=== PATIENT | male | born 1975 | race Two or more races ===

== ENCOUNTER 2024-05-09 10:43 | Outpatient (AMB) | payer OTHER, MEDICAID, SELFPAY ==
[2024-05-09 10:59] VITALS: BP 126/78; PULSE 80; TEMP 36.7; O2SAT 97; BMI 26.1
--- NOTE | 2024-05-09 10:59 | MHC.OFFWIV ---
Intake Vital Signs 05/09/24 10:59 Height 5 ft 6 in Weight 161 lb 8 oz BMI 26.1 BP 126/78 Blood Pressure Location Rt brachial Position Sitting Pulse 80 Pulse Source Pulse Oximeter Temp 98.0 F Temp Source Oral Pulse Oximetry (%) 97 Intake Visit Reasons: tightness chest fire extinguisher used Intake Note: pt is here for chest tightness due to fire extinguisher being used to at job. 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 He states he was at work this morning and accidentally triggered a fire extinguisher. He states the fire extinguisher sprayed into the air which irritated his throat and made his chest feels tight. He does have a history of asthma but he did not use his inhaler or feel like he needed to use his inhaler at the time of the incident. He states he feels like most of his symptoms have resolved but his employer asked him to come in and be evaluated. He denies any shortness of breath, trouble breathing or feeling like his throat is closing up PFSH Social History Patient Tobacco Use Status: Never used Tobacco Review of Systems Const All systems reviewed & are unremarkable except as noted in HPI and below Physical Exam Vital Signs: Last Vital Signs Temp 98.0 F 05/09/24 10:59 Pulse 80 05/09/24 10:59 BP 126/78 05/09/24 10:59 Pulse Ox 97 05/09/24 10:59 BMI result Body Mass Index 26.1 Const General: cooperative, healthy appearing, comfortable, no acute distress and well developed Orientation/consciousness: patient oriented x3 Limitations: no limitations HEENT Head: Yes normal to inspection Eyes General: appearance normal, both eyes and all related structures Neck Neck: Yes normal visual inspection and Yes full ROM Resp Effort & Inspection: normal respiratory effort and able to speak in complete sentences Auscultation: clear to auscultation bilaterally Cardio Rate: regular rate Rhythm: regular rhythm Heart sounds: normal S1 and S2 GI Inspection: Yes normal to inspection Palpation (GI): Soft to palpation and nontender Skin General skin exam: no rashes or lesions noted Neuro General: patient oriented x3 Extrem General: Yes normal to inspection Psych Appearance: grossly normal and well kempt Assessment & Plan Assessment & Plan (1) Chest tightness: Code(s): R07.89 - Other chest pain Plan: As symptoms have completely resolved, vital signs are stable and physical exam was unremarkable. Wrote note that patient is free to return to work. No indication for a chest x-ray Plan See above Coding Level of Care Code New Pt Level 4 (76461) Diagnoses Chest tightness R07.89
== END 2024-05-09 11:32 | disposition home or self-care (01) ==
PROVIDERS: Visit Provider Physician Assistant
DX: R07.89 Other chest pain (principal); Z04.2 Encounter for examination and observation following work accident
CPT/HCPCS: 99204

== ENCOUNTER 2025-05-18 08:45 | Emergency (ER) | payer MEDICAID, SELFPAY ==
--- OUTSIDE RECORDS SUMMARY | 2025-03-10 17:30 | XMS_ITS ---
Author Organization [facility] Address [address] [place] [id number] Care Team Providers Care Merchandising Director Name Role Phone WALTER ROSALES, KAUSHIK Primary Care Provider Unavail able Carole Arreola Unavailable [phone] Migration, Provider Unavailable Unavailable REASON FOR VISIT Multum To Medispan Conversion Encounter Medications Medication SIG (Take, Route, Frequency, Duration) Notes Start Date End Date Status Atorvastatin Calcium 80 MG 1 tab(s) orally once a day for 30 day(s) 09/07/2023 Active Sutab 0.225 G-0.188 G-1.479 G DIRECTED COUPON INFORMATION: BIN: [id number] PCN: CN GRP: [id number] ID: [id number] *Please review and pick correct strength-formulatio n from Medispan options. If intended option is not shown, discontinue and re-order from Quick Search* 10/04/2023 Active Famciclovir 500 MG TAKE 3 TABLETS BY MOUTH ONCE AT THE FIRST SIGN OF A HERPES OUTBREAK for 5 Days Active Encounters Encounter Location Date Provider Diagnosis [facility] [address] [place] [phone] 03/10/2025 Provider Migration Plan Of Treatment Next Appt Details Provider Name:Carole barrios, 11/06/2025 02:45:00 PM, [address] [place] [address], [place], [phone], Progress Notes * BRIANDA SHELTONDOB:0 1975 (50 yo M)Acc No.[id number]:03/10/2025 Patient: BRIANDA HUDSON Provider: :1975 A ge:49 Y S ex:Male Date:03/10/2025 Address:[address] [place], [place] [id number] Pcp:KAUSHIK WATSON MD Subjective: * Chief Complaints: * 1 . Multum To Medispan Conversion Encounter. * Medical History: * Medications: T aking Famciclovir 500 MG Tablet TAKE 3 TABLETS BY MOUTH ONCE AT THE FIRST SIGN OF A HERPES OUTBREAK , Taking Atorvastatin Calcium 80 MG Tablet 1 tab(s) orally once a day , Taking Sutab 0.225 G-0.188 G-1.479 G TABLET DIRECTED COUPON INFORMATION: BIN: [id number] PCN: NIYAH GRP: [id number] ID: [id number] , Notes to Pharmacist: *Please review and pick correct strength-formulation from Medispan options. If intended option is not shown, discontinue and re-order from Quick Search* Objective: * Vitals: Assessment: Plan: * Treatment: * * Electronic signature of Prov ider Migration on 05/18/2025 at 09:40 AM EDT Sign off status: Pending * Provider: Date: 03/10/2025 Generated for Perico orlando/Adina/Joseitting on: 05/18/2025 09:40 AM EDT
--- NOTE | 2025-05-18 | ECG_ITS ---
Test Reason : nausea/vomiting Blood Pressure : */* mmHG Vent. Rate : 68 BPM Atrial Rate : 68 BPM P-R Int : 152 ms QRS Dur : 90 ms QT Int : 370 ms P-R-T Axes : 71 57 44 degrees QTcB Int : 393 ms Sinus rhythm with occasional Premature ventricular complexes Otherwise normal ECG No previous ECGs available Referred By: Generic ED Physician Electronically Signed By: MAINOR ROCHE
--- NOTE | ~2025-05-18 | CT_ITS ---
EXAMINATION: CT ABDOMEN AND PELVIS WITH CONTRAST CLINICAL INFORMATION: Right lower quadrant pain and vomiting. COMPARISON: None available. TECHNIQUE: Multidetector volumetric images were obtained from the superior aspect of the liver through the pubic symphysis following administration 85 mL of Omnipaque 350 intravenous contrast. Sagittal and coronal reformatted images were obtained on the technologist's workstation. Oral contrast: No This CT examination was performed using dose optimization techniques as appropriate, variously including the following: *Automated exposure control *Adjustment of mA and/or kV according to patient size (this includes techniques or standardized protocols for targeted exams where dose is matched to indication/reason for exam; i.e. extremities or head) *Use of iterative reconstruction technique FINDINGS: LUNG BASES: There is mild gravity dependent atelectasis. Lung bases otherwise clear. Heart size normal. There is a small type I hiatus hernia. LIVER, GALLBLADDER, AND BILIARY TREE: The liver is normal in size, shape, and attenuation. No focal hepatic lesion or biliary ductal dilatation is present. The gallbladder is unremarkable with no evidence of radiopaque gallstones, gallbladder wall thickening, or obvious pericholecystic inflammatory changes. PANCREAS: Unremarkable. SPLEEN: Unremarkable. ADRENAL GLANDS: Unremarkable. KIDNEYS AND URETERS: The kidneys are normal in size, shape, and attenuation. No hydronephrosis, hydroureter, or calculi seen. No perinephric stranding. BLADDER: Unremarkable. GASTROINTESTINAL TRACT: There is mild diffuse colonic wall thickening suggestive of colitis. No gross pericolonic inflammation. There is no rectal involvement. The small bowel is normal in caliber and course. The stomach is decompressed. Small type I hiatus hernia. Normal appendix is visualized. ABDOMINAL WALL: No significant hernia is appreciated. LYMPH NODES: No abnormal lymphadenopathy. VASCULAR: Unremarkable. PELVIC VISCERA: Unremarkable. OSSEOUS STRUCTURES: No suspicious lytic or blastic bone lesions. CT/CT abdomen pelvis w IV con IMPRESSION: 1. Mild diffuse colonic wall thickening, suggestive of colitis in the appropriate clinical setting. 2. Normal appendix. 3. Remainder of the examination appears normal. Electronically signed by: Dante De Dios MD 05/18/2025 11:20 AM EDT
[2025-05-18 08:49] VITALS: BP 118/76; PULSE 78; RESP 16; TEMP 36.8; O2SAT 98; BMI 24.7
--- NOTE | 2025-05-18 09:06 | ED_ITS ---
HPI - General Adult General Chief complaint: Nausea/Vomiting/Diarrhea Stated complaint: Dizziness, vomiting, diarrhea Time Seen by Provider: 05/18/25 09:06 Source: patient Mode of arrival: ambulatory Limitations: no limitations History of Present Illness ED Provider: Selena Naqvi PA-C HPI narrative: Patient is a 50 year old assigned male at with no reported medical history presenting to the emergency department today with abdominal pain, nausea, vomiting, diarrhea, and dizziness. Patient states that over the last day he has had lower abdominal pain with nausea, vomiting, dizziness, and diarrhea. Patient denies any lightheadedness, fever, chills, blurry vision, double vision, loss of vision, chest pain, difficulty breathing, shortness of breath, back pain, night sweats, pain with urination, increased urinary frequency, increased urinary urgency, blood in his urine or stool, syncope or a near syncopal episode, recent trauma or falls, bowel incontinence, bladder incontinence, or any other complaints at this time. Onset (ago): day(s) (1) Relieving factors: none Exacerbating factors: none Associated symptoms: nausea/vomiting Treatments prior to arrival: none Related Data Home Medications ?Medication ?Instructions ?Recorded ?Confirmed albuterol sulfate 90 mcg/actuation 2 puff inhalation Q 4H PRN 05/09/24 aerosol inhaler (Ventolin HFA) atorvastatin 80 mg tablet 80 mg PO BEDTIME 05/09/24 Previous Rx's ?Medication ?Instructions ?Recorded ondansetron 4 mg disintegrating 4 mg PO Q8H 3 days #9 tabs 05/18/25 tablet Allergies Allergy/AdvReac Type Severity Reaction Status Date / Time shellfish derived (shellfish) Allergy Anaphylaxis Verified 05/18/25 09:47 Review of Systems 2 Constitutional: Constitutional: Reports no additional constitutional complaints, Denies chills, Denies fever(s) and Denies night sweats Eyes: Eyes: Reports no additional eye complaints, Denies blurry vision, Denies change in vision, Denies diplopia, Denies eye discharge, Denies loss of vision and Denies eye pain ENT: Reports dizziness Cardiovascular: Cardiovascular: Reports no additional cardiovascular complaints, Denies chest pain, Denies lightheadedness, Denies Loss of Consciousness and Denies dyspnea Respiratory: Respiratory: Reports no additional respiratory complaints and Denies dyspnea Gastrointestinal: Gastrointestinal: Reports no additional gastrointestinal complaints, Reports abdominal pain, Denies melena, Denies hematochezia, Denies change in bowel habits, Denies change in stool character, Reports diarrhea, Reports nausea and Reports vomiting Genitourinary: Genitourinary: Reports no additional male genitourinary complaints, Denies hematuria, Denies oliguria, Denies difficulty urinating, Denies dysuria, Denies urinary frequency, Denies urinary hesitancy, Denies urinary incontinence and Denies urinary urgency Musculoskeletal: Musculoskeletal: Reports no additional musculoskeletal complaints, Denies numbness and Denies tingling Neurologic: Reports dizziness, Denies loss of vision, Denies numbness and Denies tingling Psychiatric: Psychiatric: Reports no additional psychiatric complaints Endocrine: Endocrine: Reports no additional endocrine complaints Hematologic/Lymphatic: Hematologic/Lymphatic: Reports no additional hematologic/lymphatic complaints Allergic/Immunologic: Allergic/Immunologic: Reports no additional allergic/immunologic complaints [facility] Social History Social History Patient Tobacco Use Status: Never used Tobacco Smoked in Last 30 Days: No Use of substances other than those prescribed or required for medical reasons: No Advance Directives: No Advance Directives Information Provided: Yes Do you have a plan to hurt others: No Plan Physical Exam ED Vital Signs: Vital Signs - 24 hr 05/18/25 08:49 05/18/25 10:22 05/18/25 11:29 Temperature 98.2 F 98.7 F Pulse Rate 78 63 74 Respiratory Rate 16 18 16 Blood Pressure 118/76 120/76 Pulse Oximetry 98 100 100 Oxygen Delivery Method Room Air Room Air Room Air 05/18/25 11:47 Temperature 98.7 F Pulse Rate 74 Respiratory Rate 16 Blood Pressure 120/76 Pulse Oximetry 100 Oxygen Delivery Method Room Air BMI result Body Mass Index 24.7 Medications Administered Discontinued Medications Generic Name Dose Route Start Last Admin Trade Name Freq PRN Reason Stop Dose Admin Diphenhydramine HCl 25 mg 05/18/25 09:57 05/18/25 10:01 Diphenhydramine Hcl 50 Mg/Ml Vial IVPUSH 05/18/25 09:58 25 mg ONCE ONE Administration Sodium Chloride 1,000 mls @ 999 mls/hr 05/18/25 09:15 05/18/25 11:14 Ns IV 05/18/25 10:15 Infused .Q1H1M [place] Infusion Iohexol 100 ml 05/18/25 11:05 05/18/25 11:06 Iohexol 350 Mg/Ml 100 Ml Infus..Btl IV 05/18/25 11:06 85 ml ONCE ONE Administration Methylprednisolone Sodium Succinate 60 mg 05/18/25 09:57 05/18/25 10:01 Methylprednisolone Sod Succ 125 Mg/2 Ml Vial IVPUSH 05/18/25 09:58 60 mg ONCE ONE Administration Pantoprazole Sodium 40 mg 05/18/25 09:14 05/18/25 09:49 Pantoprazole Sodium 40 Mg/10 Ml Vial IVPUSH 05/18/25 09:15 40 mg ONCE ONE Administration Medical Decision Making Medical Decision Making [facility] Narrative: Patient is a 50 year old assigned male at with no reported medical history presenting to the emergency department today with abdominal pain, nausea, vomiting, diarrhea, and dizziness. Patient's physical exam was unremarkable. Patient's blood work was unremarkable. Patient's EKG was unremarkable. Patient's CT abd/pelvis showed colitis. I explained my physical exam findings as well as all test results to the patient. I answered all questions asked by the patient. I stressed the importance of the patient taking his medication as directed (either prescribed or as the over the counter packaging recommends). I stressed the importance of the patient following up with his primary care provider. I stressed the importance of the patient returning to the emergency department immediately if his symptoms were to worsen or if he were to develop any dizziness, shortness of breath, difficulty breathing, chest pain, blurry vision, loss of vision, nausea, vomiting, abdominal pain, fever, chills, back pain, or any other complaints. Patient verbalized agreement and understanding with this treatment plan and discharge. Differential Diagnosis Differential Diagnoses: The differential diagnosis associated with the presentation includes Colitis Diverticulitis Appendicitis Gastroenteritis Admission/Observation Consideration of admission/observation: Escalation of care including admission/observation considered Patient would have been admitted to the hospital had his work up had any findings where hospital admission was appropriate and his clinical presentation warranted hospital admission. Lab Data [facility] Lab Attestation statement: I reviewed the patient's lab results. My interpretation of these results are in the [facility] Rationale portion of this note. 05/18/25 09:24 05/18/25 09:24 Labs: Lab Results 05/18/25 Range/Units 09:24 WBC 4.7 L (4.8-10.8) X10*3/uL RBC 4.59 L (4.60-5.80) X10*6/uL Hgb 13.8 L (14.0-18.0) g/dl Hct 39.9 L (42.0-52.0) % MCV 86.9 (80.0-98.0) fL MCH 30.1 (27.0-33.0) pg MCHC 34.6 (31.0-36.0) g/dl RDW 12.7 (11.0-16.0) % Plt Count 207 (160-400) X10*3/uL MPV 9.5 (9.4-12.4) fL Immature Gran % (Auto) 0.2 (0.0-0.4) % Neut % (Auto) 53.2 (45-73) % Lymph % (Auto) 37.1 (20-40) % [place] % (Auto) 7.6 (2-11) % Eos % (Auto) 1.3 (0-4) % Baso % (Auto) 0.6 (0-2) % Lymph # (Auto) 1.8 (1.2-4.9) X10*3/uL [place] # (Auto) 0.4 (0.1-1.2) X10*3/uL Eos # (Auto) 0.1 (0.0-0.4) X10*3/uL Baso # (Auto) 0.0 (0.0-0.2) X10*3/uL Abs Immat Gran (auto) 0.01 (0.00-0.03) X10*3/uL Absolute Neuts (auto) 2.5 (2.0-8.3) x10*3/uL Absolute Nucleated RBC 0.000 (0.0-0.012) X10*3/uL Nucleated RBC % (auto) 0.0 (0.0-0.2) /100WBC Sodium 139 (135-145) mmol/L Potassium 4.0 (3.3-5.1) mmol/L Chloride 108 (96-108) mmol/L Carbon Dioxide 24 (22-29) mmol/L Anion Gap 11 L (12-20) BUN 11 (9-16) mg/dL Creatinine 1.08 (0.5-1.4) mg/dL Estim Creat Clear Calc 73.8 Estimated GFR > 60 Random Glucose 91 (60-115) mg/dL Calcium 8.8 (8.4-10.2) mg/dL Magnesium 1.8 (1.6-2.6) mg/dL Total Bilirubin 0.7 (0.0-1.0) mg/dL AST 44 H (5-37) U/L ALT 53 H (0-40) U/L Alkaline Phosphatase 77 (39-117) U/L Total Protein 7.1 (6.5-8.0) g/dL Albumin 4.5 (3.5-5.0) g/dL Lipase 13 (8-78) U/L Urine Color Yellow Urine Appearance Clear Urine pH 5.5 (5.0-9.0) Ur Specific [place] 1.020 (1.005-1.025) Urine Protein Negative (Neg-Trace) mg/dL Urine Glucose (UA) Negative (Negative) mg/dL Urine Ketones Trace (Negative) mg/dL Urine Blood Negative (Negative) Urine Nitrite Negative (Negative) Ur Leukocyte Esterase Negative (Negative) Urine RBC 0-2 (0-2) /HPF Urine WBC 0-5 (0-5) /HPF Ur Squamous Epith Cells 0-2 (0-2) /HPF Urine Bacteria None Seen (None Seen) Hyaline Casts 0-2 (0-2) /LPF Stl C. cayetanensis PCR Not Detected (Not Detect.) Stool Rotavirus A PCR Not Detected (Not Detect.) Stl Adenov F 40/41 PCR Not Detected (Not Detect.) Stool Astrovirus (PCR) Not Detected (Not Detect.) Stool Campylobacter PCR Not Detected (Not Detect.) Stool Cryptosporidium PCR Not Detected (Not Detect.) Stl Sh Tox Pr E STEC PCR Not Detected (Not Detect.) Stool E coli O157 PCR Not applicable (Not Detect.) Stl Enterotoxigenic E PCR Not Detected (Not Detect.) Stool EPEC (PCR) Not Detected (Not Detect.) Stool EAEC (PCR) Not Detected (Not Detect.) Stl E. histolytica PCR Not Detected (Not Detect.) Stool Giardia Lamblia PCR Not Detected (Not Detect.) Stl P. shigelloides PCR Not Detected (Not Detect.) Stool Salmonella PCR Not Detected (Not Detect.) Stool Sapovirus (PCR) Not Detected (Not Detect.) Stl Shigella/EIEC PCR Not Detected (Not Detect.) St Y.enterocolitica PCR Not Detected (Not Detect.) Stool Vibrio (PCR) Not Detected (Not Detect.) Stl Vibrio cholerae PCR Not Detected (Not Detect.) Stl Norovirus GI/GII PCR Not Detected (Not Detect.) C. difficile Tox B Gene NEGATIVE (Negative) Influenza Type A (PCR) NEGATIVE (Negative) Influenza Type B (PCR) NEGATIVE (Negative) RSV RNA Qual (PCR) NEGATIVE (Negative) SARS-CoV-2 RNA (RT-PCR) NEGATIVE (Negative) Independent Interpretation I performed an independent interpretation of an: CT Scan Interpretation: My interpretation is in agreement with the radiologist's impression of this imaging study. L Report Number: [id number]: Total DLP = 301.00 mGy-cm EXAMINATION: CT ABDOMEN AND PELVIS WITH CONTRAST CLINICAL INFORMATION: Right lower quadrant pain and vomiting. COMPARISON: None available. TECHNIQUE: Multidetector volumetric images were obtained from the superior aspect of the liver through the pubic symphysis following administration 85 mL of Omnipaque 350 intravenous contrast. Sagittal and coronal reformatted images were obtained on the technologist's workstation. Oral contrast: No This CT examination was performed using dose optimization techniques as appropriate, variously including the following: *Automated exposure control *Adjustment of mA and/or kV according to patient size (this includes techniques or standardized protocols for targeted exams where dose is matched to indication/reason for exam; i.e. extremities or head) *Use of iterative reconstruction technique FINDINGS: LUNG BASES: There is mild gravity dependent atelectasis. Lung bases otherwise clear. Heart size normal. There is a small type I hiatus hernia. LIVER, GALLBLADDER, AND BILIARY TREE: The liver is normal in size, shape, and attenuation. No focal hepatic lesion or biliary ductal dilatation is present. The gallbladder is unremarkable with no evidence of radiopaque gallstones, gallbladder wall thickening, or obvious pericholecystic inflammatory changes. PANCREAS: Unremarkable. SPLEEN: Unremarkable. ADRENAL GLANDS: Unremarkable. KIDNEYS AND URETERS: The kidneys are normal in size, shape, and attenuation. No hydronephrosis, hydroureter, or calculi seen. No perinephric stranding. BLADDER: Unremarkable. GASTROINTESTINAL TRACT: There is mild diffuse colonic wall thickening suggestive of colitis. No gross pericolonic inflammation. There is no rectal involvement. The small bowel is normal in caliber and course. The stomach is decompressed. Small type I hiatus hernia. Normal appendix is visualized. ABDOMINAL WALL: No significant hernia is appreciated. LYMPH NODES: No abnormal lymphadenopathy. VASCULAR: Unremarkable. PELVIC VISCERA: Unremarkable. OSSEOUS STRUCTURES: No suspicious lytic or blastic bone lesions. CT/CT abdomen pelvis w IV con IMPRESSION: 1. Mild diffuse colonic wall thickening, suggestive of colitis in the appropriate clinical setting. 2. Normal appendix. 3. Remainder of the examination appears normal. Electronically signed by: Dante De Dios MD 05/18/2025 11:20 AM EDT RP Dictated By: Dante De Dios MD Signed By: Electronically signed by Dante eD Dios MD 05/18/25 1120 I independently interpreted this EKG and am in agreement with the below findings: Vent. Rate: 68 BPM Atrial Rate: 68 BPM P-R Int: 152 ms QRS Dur: 90 ms QT Int: 370 ms P-R-T Axes: 71 57 44 degrees QTcB Int: 393 ms Sinus rhythm with occasional Premature ventricular complexes No previous ECGs available DD/ 0915 Radiology Impression Discussion of test interpretation with radiology: I have reviewed the radiologist's reading. Discharge Plan Discharge Clinical Impression: Colitis Patient Disposition: Home, Self-Care Instructions: Colitis (ED) Additional Instructions: Follow up with a primary care provider. Return to the emergency department immediately if your symptoms worsen or if you develop any numbness, tingling, dizziness, shortness of breath, difficulty breathing, chest pain, blurry vision, loss of vision, nausea, vomiting, abdominal pain, fever, chills, back pain, or any other complaints. L If you do not have a primary care provider - call any of the below numbers to establish and follow up with a primary care provider. [facility] ([place]) [phone] [place] [address] [place], [address] [facility] [place] [place] [phone] [address] [facility], [address] [facility], [address] [facility] ([address] [place]) [phone] [address] [facility], [address] [place], [address] [facility] ([place]) [phone] [place] [address], [address] [facility], [address] [facility] [phone] [place] [address], [address] Please see the information below about our Patient Portal. If you are not yet enrolled in the [facility] Patient Portal, you will receive an enrollment email invitation following your visit to any [facility] setting. You may also self-enroll in the Patient Portal by visiting our website: [email or web address] The following information is required to access the Patient Portal: - Your [facility] Medical Record Number - Your personal home email address (must match what is in your electronic medical record, Registration staff can assist with this) - Name - Date of Capabilities of the Patient Portal: - Message some providers - View upcoming appointments - Access your health summary, medical history, and visit history - View current conditions and allergies - View procedure and lab results - View your medications, including guidelines, side effects, and precautions - Complete pre-appointment questionnaires requested by your provider - Ready summary reports of your office visits and procedures To access the Patient Portal Mobile Toney, follow these directions: - Search [employer] in the Toney Store or Wego[employer]ise Store - Download the Toney - Search for [facility] - Enter your login/password Prescriptions: New ondansetron 4 mg tablet,disintegrating 4 mg PO Q8H 3 Days Qty: 9 0RF No Action albuterol sulfate [Ventolin HFA] 90 mcg/actuation HFA aerosol inhaler 2 puff inhalation Q4H PRN atorvastatin 80 mg tablet 80 mg PO BEDTIME Stand Alone Forms: Work/School Release Interventions: ED Discharge Assessment Last Done: 05/18/25 11:47 Discharge Date/Time: 05/18/25 11:48 Print Language: Thai
--- NOTE | 2025-05-18 09:29 | PC.NURSE ---
Pt reporting 1-2 days of vomiting an diarrhea, pt reporting right sided lower quad pain that radiates to the left on palpitation. Denies urinary symptoms, sob/cp/sick contacts, fevers.
[2025-05-18 09:31] LABS: MANUAL DIFF FLAG NO
[2025-05-18 09:34] LABS: Hematocrit 39.9 % (42.0-52.0); Hemoglobin 13.8 g/dl (14.0-18.0); Imm Gran Abs Auto 0.01 X10*3/uL (0.00-0.03); Imm Gran Pct Auto 0.2 % (0.0-0.4); Lymphocytes Absolute Auto 1.8 X10*3/uL (1.2-4.9); Mean Corpuscular HGB Conc 34.6 g/dl (31.0-36.0); Mean Corpuscular Hemoglobin 30.1 pg (27.0-33.0); Mean Corpuscular Volume 86.9 fL (80.0-98.0); NRBC Abs Auto 0.000 X10*3/uL (0.0-0.012); NRBC Pct Auto 0.0 /100WBC (0.0-0.2); Platelet Count 207 X10*3/uL (160-400); Red Blood Count 4.59 X10*6/uL (4.60-5.80); White Blood Count 4.7 X10*3/uL (4.8-10.8)
[2025-05-18 09:37] LABS: Appearance Urine Clear; Glucose Urine UA Negative (Negative); PH 5.5 (5.0-9.0); Specific Gravity - Urine 1.020 (1.005-1.025)
--- OUTSIDE RECORDS SUMMARY | 2025-05-18 09:41 | XMS_ITS | Data Portability ---
Author Organization [facility], [address] Address [address] [place] [address] Assessment No assessment recorded. Plan of Treatment Reminders Order Date Submit Date Provider Last Modified By Organization Details Last Modified Time Details Appointments None recorded. Lab rapid flu (A+B) [email or web address], [address], 16:37:12 Referral None recorded. Procedures None recorded. Surgeries None recorded. Imaging None recorded. Medication Orders Tamiflu 75 mg capsule [email or web address] 05 [facility][id number], [address] [facility], [place], [address], 17:08:02 Patient TargetsNo targets recorded. Patient Instructions Encounter Date Encounter Id Patient Instructions Last Modified By Organization Details Last Modified Time 10/20/2022 [id number] influenza (flu): care instructions [email or web address] Not available 10/20/2022 16:37:12 Take over the counter medications such as ibuprofen or tylenol according to package instructions. Do not exceed maximum dosage for age/weight. Do not take anything that you might be allergic to. Make sure to consult us or your primary care physician if you take medications such as blood thinners or blood pressure medications before taking over the counter medications. The best over the counter cough medication for people with high blood pressure is Coricidin, which is available at any pharmacy without a prescription. Drink plenty of water. Go to the nearest emergency department if you develop ANY new or worsening symptoms. Call 911 if you feel that you are having a medical emergency. Call your primary care physician today to set up a follow up appointment within one week. Not following up with your primary care physician may result in adverse health conditions. If you have any questions or concerns, please call us. tom Not available 10/20/2022 16:33:16 Reason for Referral None Reported. Results Created Date Observation Date Name Description Value Unit Range Abnormal Flag Note LastModifiedBy Organization Detail LastModifiedTime 10/20/2010/20/2022 rapid flu (A+B) Unknown Analyte positi ve Not Available [address] [address] [place] [address], [id number], 10/20/2022 16:10:09 10/20/2010/20/2022 rapid flu (A+B) Unknown Analyte negati ve Not Available _[address], [address], 10/20/2022 16:10:09 Result Notes None recorded. Problems Name Problem SNOMED Code Status Onset Date Resolution Date Notes Provider Name and Address Organization Details Recorded Time Hyperlipidemia 40725494 Active 2021 MARIANNA Lazaro [facility] 16:09:37 Problem Notes None recorded. Procedures Surgical History Date Name Laterality Status Provider Name and Address Organization Details Recorded Time 3 OC-UDS Rapid 5 or 10 panel Template completed Garland Macias [facility] 12/23/2022 11:47:55 Imaging Results None recorded. Procedure Notes None recorded. Medical Equipment None Reported. Allergies No known drug allergies Medications Name Sig Start Date Stop Date Status Note LastModified by Organization Details LastModified Time oseltamivir 75 mg capsule TAKE 1 CAPSULE BY MOUTH TWICE A DAY FOR 5 DAYS 022 active Not Available Not Available Not Avai lable simvastatin active Not Available Not A vailable Not Available Vitals Date Recorded Body height Provider Name an d Address Organization Details Last Updated DateTime 12/23/2022 167.64 cm Garland Macias [facility] 12/23/2022 11:46:55 Date Recorded Body height Body mass index (BMI) Body weight Oxygen saturation Oxygen saturation in Arterial blood by Pulse oximetry Heart rate Respiratory rate Body temperature Systolic And Diastolic Provider Name and Address Organization Details Last Updated DateTime 167.64 cm 26.6 kg/m2 54028.7 4 g 97 % 97 % 90 /min 18 /min 98.8 [degF] 131/88 mm[Hg] BENIGNO MACKENZIE PA - [facility] 16:11:47 Social History Question Answer Notes LastModified by [employer] Details LastModified Time Tobacco Smoking Status Never Smoker BENIGNO cheek PA - [facility] 10/20/2022 16:10:02 Have You Recently Traveled Abroad? No Information not available 10/20/2022 Sex: Unknown Functional Status Question Answer Note LastModified by [employer] Details LastModified Time Do you use any illicit or recreational drugs? No [email or web address] Information not available 10/20/2022 Do you or have you ever used any other forms of tobacco or nicotine? No [email or web address] Information not available 10/20/2022 What is your level of alcohol consumption? Occasional [email or web address] Information not available 10/20/2022 Mental Status None recorded. Family History Relationship Description Onset Age of this Age Resolved Age Notes LastModified by Organization Details LastModified Time Father No current problems or disability [email or web address] Not available 10/20 16:09:41 Mother No current problems or disability [email or web address] Not available 10/20 16:09:41 Medical History No medical history recorded. Past Encounters Encounter ID Performer Location Encounter Start Date Encounter Closed Date Diagnosis/Indication Diagnosis SNOMED-CT Code Diagnosis ICD10 Code Diagnosis Note [id number] [facility] [facility] [address] [place] [address] 04/28/2022 08:41:12 04/28/2022 10:14:56 [id number] [address] [facility] [address] [place] [address] 02/27/2022 09:01:17 02/27/2022 10:13:58 [id number] MARIANNA Haddad [address] [place] [address] 10/20/2022 12:57:59 10/20/2022 16:48:17 Influenza [id number] J11.1 [id number] [place] [address] [facility] [place] [place] [address] 12/23/2022 11:26:56 12/23/2022 11:58:03 History and physical examination, occupation [id number] Z02.1 Health Concerns Section Related Observation LastModified by Organization Detai ls LastModified Time None Recorded Concern Status LastModified by Organization Details LastModified Time None Recorded Advance Directives Directive None Recorded Payers Insurance Date Sequence Insurance Name Policy Number Policy Vaughn Covered Member ID Vaughn Member ID Guarantor Name 12/23/2022 OC-ESCREEN [employer] MISSAELSAGINAW Laurel Lyons 12/23/2022 1 [place] [facility] Марина Lyons [id number] аМрина Lyons Notes Date Note Type Note Provider Name and Address Organization Details Recorded Time 10/20/2022 text/html CoughReported bypatient.Notes:Pt reports cough, congestion, aches, chills since yesterday. Went to the ER and was tested for covid which was negative, but did not wait to be seen. Denies measured fever, n/v/d, SOB, wheezing. Nothing OTC. MARIANNA Haddad [facility] [place], [address], PA - [facility] 10/20/2022 16:41:59
[2025-05-18 09:43] LABS: Lipase 13 U/L (8-78)
[2025-05-18 09:46] LABS: Alanine Aminotransferase 53 U/L (0-40); Albumin Level 4.5 g/dL (3.5-5.0); Alkaline Phosphatase 77 U/L (39-117); Anion Gap 11 (12-20); Aspartate Amino Transferase 44 U/L (5-37); Blood Urea Nitrogen 11 mg/dL (9-16); Calcium 8.8 mg/dL (8.4-10.2); Carbon Dioxide 24 mmol/L (22-29); Chloride 108 mmol/L (96-108); Creatinine Clr Calc Pharmacy 73.8; Estimated Glomerular Filt Rate > 60; Magnesium 1.8 mg/dL (1.6-2.6); Potassium 4.0 mmol/L (3.3-5.1); Sodium 139 mmol/L (135-145); Total Protein 7.1 g/dL (6.5-8.0)
--- NOTE | 2025-05-18 10:04 | PC.NURSE ---
This RN checked with PA and radiology about pt having a Shellfish allergy. pt given premeds at this time, with low thresh hold of reaction. Pt in agreement with plan, aware of risk and benefits. Per PA she does not want to wait the 6 hour protocol at this time.
[2025-05-18 10:15] LABS: Resp Syncy Virus RNA Qual PCR NEGATIVE (Negative); SARS COV2 PCR INHOUSE NEGATIVE (Negative)
--- NOTE | 2025-05-18 10:21 | PC.NURSE ---
Pt taken to CT scan, and is now back in ED, tolerated well, no reactions noted at this time, pt in bed, resting comfortably. Vitals remain stable, 100% on RA with unlabored breathing
[2025-05-18 10:22] VITALS: PULSE 63; RESP 18; O2SAT 100
[2025-05-18 10:42] LABS: CDiff Gene PCR NEGATIVE (Negative)
[2025-05-18 11:04] LABS: E. coli EAEC Not Detected (Not Detect.); E. coli EPEC Not Detected (Not Detect.); E. coli ETEC Not Detected (Not Detect.); E. coli STEC Not Detected (Not Detect.); Shigella sp./EIEC Not Detected (Not Detect.)
[2025-05-18] MEDS: iohexoL 350 MG/ML 100 ML INFUS..BTL IV (11:06)
[2025-05-18 11:29] VITALS: BP 120/76; PULSE 74; RESP 16; TEMP 37.1; O2SAT 100
[2025-05-18 11:47] VITALS: BP 120/76; PULSE 74; RESP 16; TEMP 37.1; O2SAT 100
== END 2025-05-18 11:48 | disposition home or self-care (01) ==
PROVIDERS: Physician Assistant Medical; Emergency Provider Emergency Medicine
DX: K52.9 Noninfective gastroenteritis and colitis, unspecified (principal); R11.2 Nausea with vomiting, unspecified; R10.31 Right lower quadrant pain; Z03.818 Encounter for observation for suspected exposure to other biological agents ruled out
CPT/HCPCS: 36415; 74177; 80053; 81001; 83690; 83735; 85025; 87493; 87507; 87637; 93005; 96361; 96374; 96375; 99284; 99285; J1200; J2470; J2919; Q9967

== ENCOUNTER → 2025-05-18 09:14 | Outpatient (BNV) | payer MEDICAID, SELFPAY | PROVIDERS: Emergency Provider Emergency Medicine; Visit Provider Radiology Diagnostic Radiology | DX: R10.31 Right lower quadrant pain (principal); R11.10 Vomiting, unspecified | CPT/HCPCS: 74177 ==

== ENCOUNTER → 2025-05-18 09:15 | Outpatient (BNV) | payer MEDICAID, SELFPAY | PROVIDERS: Emergency Provider Emergency Medicine; Visit Provider Internal Medicine | DX: I49.3 Ventricular premature depolarization (principal) | CPT/HCPCS: 93010 ==